=== PATIENT | female | born 1975 | race Caucasian/White ===

== ENCOUNTER 2018-03-11 20:41 | Emergency (ER) | payer OTHER ==
[2018-03-11 20:47] VITALS: BP 138/75; PULSE 78; TEMP 98; BMI 28.1
--- NOTE | 2018-03-11 20:47 | PDOC ---
Rapid Medical Evaluation Time Seen by Provider: 03/11/18 20:45 Medical Evaluation: Allergies Allergy/AdvReac Type Severity Reaction Status Date / Time vancomycin Allergy Itching Verified 02/27/18 07:47 03/11/18 20:45 I have performed a brief in-person evaluation of this patient. The patient presents with a chief complaint of: vaginal bleeding with known 4x4x4 hemorrhagic left ovarian cyst Pertinent physical exam findings: VSS. tender left abdomen I have ordered the following: labs, urine The patient will proceed to the ED for further evaluation. Discharge Disposition - Diagnosis Vaginal bleeding - Referrals - Patient Instructions - Post Discharge Activity
--- NOTE | 2018-03-11 21:03 | PDOC ---
History of Present Illness <Shahla Agarwal - Last Filed: 03/12/18 00:42> - General History Source: Patient Exam Limitations: No Limitations - History of Present Illness Initial Comments: 03/11/18 22:31 The patient is a 42-year-old female, with a past medical history of hydronephrosis with bilateral ureteral stent placement, who presents to the ED with left lower pelvic pain. The patient had a previous CT scan done at [facility] that revealed a 4x4 cm cyst on the left ovary. She followed up with her [facility]ODUCTION [facility]IST[facility] doctor who confirmed that the patient had a hemorrhagic cyst on her left ovary. She also noted vaginal bleeding today when she wiped. She denies taking anything for pain. The patient denies any dysuria. She denies any fever, chills, nausea, vomiting, or diarrhea. She denies any chest pain or shortness of breath. Allergies: vancomycin <Alyce Dean - Last Filed: 03/12/18 01:52> - General Chief Complaint: Vaginal Bleeding Stated Complaint: CYST Time Seen by Provider: 03/11/18 20:45 Past History - Past Medical History COPD: No Disorders: Yes (pilonephrosis and uro sepsis) - Surgical History Appendectomy: Yes - Immunization History Td Vaccination: Yes Immunization Up to Date: Yes - Suicide/Smoking/Psychosocial Hx Smoking Status: No Smoking History: Never smoked Have you smoked in the past 12 months: No Number of Cigarettes Smoked Daily: 0 Hx Alcohol Use: Yes (social) Drug/Substance Use Hx: No Substance Use Type: None <Shahla Agarwal - Last Filed: 03/12/18 00:42> <Alyce Dean - Last Filed: 03/12/18 01:52> - Past Medical History Allergies/Adverse Reactions: Allergies Allergy/AdvReac Type Severity Reaction Status Date / Time vancomycin Allergy Itching Verified 03/11/18 20:47 Home Medications: Ambulatory Orders Famotidine [Pepcid] 20 mg PO DAILY 02/27/18 metroNIDAZOLE [Flagyl -] 500 mg PO BID 02/27/18 Cephalexin Monohydrate [Keflex -] 500 mg PO BID #14 capsule 03/12/18 Review of Systems - Review of Systems Able to Perform ROS?: Yes Comments:: 03/11/18 22:47 GENERAL/CONSTITUTIONAL: No fever or chills. No weakness. HEAD, EYES, EARS, NOSE AND THROAT: No change in vision. No ear pain or discharge. No sore throat. CARDIOVASCULAR: No chest pain or shortness of breath. RESPIRATORY: No cough, wheezing, or hemoptysis. GASTROINTESTINAL: (+)Abdominal pain. No nausea, vomiting, diarrhea or constipation. GENITOURINARY: No dysuria, frequency, or change in urination. MUSCULOSKELETAL: No joint or muscle swelling or pain. No neck or back pain. SKIN: No rash NEUROLOGIC: No headache, vertigo, loss of consciousness, or change in strength/ sensation. ENDOCRINE: No increased thirst. No abnormal weight change. HEMATOLOGIC/LYMPHATIC: No anemia, easy bleeding, or history of blood clots. ALLERGIC/IMMUNOLOGIC: No hives or skin allergy. <Alyce Dean - Last Filed: 03/12/18 01:52> *Physical Exam - Vital Signs Last Vital Signs Temp Pulse Resp BP Pulse Ox 98.0 F 78 18 138/75 95 03/11/18 20:45 03/11/18 20:45 03/11/18 20:45 03/11/18 20:45 03/11/18 20:45 <Shahla Agarwal - Last Filed: 03/12/18 00:42> - Vital Signs Last Vital Signs Temp Pulse Resp BP Pulse Ox 98.0 F 78 18 138/75 95 03/11/18 20:45 03/11/18 20:45 03/11/18 20:45 03/11/18 20:45 03/11/18 20:45 - Physical Exam Comments: 03/11/18 23:19 GENERAL: Awake, alert, and fully oriented, in no acute distress HEAD: No signs of trauma EYES: PERRLA, EOMI, sclera anicteric, conjunctiva clear ENT: Auricles normal inspection, hearing grossly normal, nares patent, oropharynx clear without exudates. Moist mucosa NECK: Normal ROM, supple, no lymphadenopathy, JVD, or masses LUNGS: Breath sounds equal, clear to auscultation bilaterally. No wheezes, and no crackles HEART: Regular rate and rhythm, normal S1 and S2, no murmurs, rubs or gallops ABDOMEN: (+)Mild left pelvic tenderness to palpation. Soft, normoactive bowel sounds. No guarding, no rebound. No masses EXTREMITIES: Normal range of motion, no edema. No clubbing or cyanosis. No cords, erythema, or tenderness NEUROLOGICAL: Cranial nerves II through XII grossly intact. Normal speech, normal gait SKIN: Warm, Dry, normal turgor, no rashes or lesions noted PELVIC EXAM: Dark brown blood in vault. No clots noted. No CMT. No adnexal tenderness. <Alyce Dean - Last Filed: 03/12/18 01:52> ED Treatment Course - LABORATORY CBC & Chemistry Diagram: 03/11/18 22:40 03/11/18 22:40 <Shahla Agarwal - Last Filed: 03/12/18 00:42> - LABORATORY CBC & Chemistry Diagram: 03/11/18 22:40 03/11/18 22:40 <Alyce Dean - Last Filed: 03/12/18 01:52> Medical Decision Making - Medical Decision Making 03/12/18 00:03 a/p: 42yo female with L pelvic pain -recently dx with a hemorrhagic ovarian cyst -hx of irreg menstrual cycle -follows with [facility] -told that with the hemorrhagic ovarian cyst if she starts to bleed she should come to the ED -states spotting today -passage of a small clot -will obtain labs, pelvic exam, tvus -will give toradol for pain -will monitor and reassess 03/12/18 00:05 ultrasound shows a uterine fibroid and a 2.5x2.1 L ovarian cyst 03/12/18 00:42 discussed all labs and imaging sent Rx for UTI abx discussed all reasons to return to the ED and need for follow up answered all questions discussed follow up with [facility] <Shahla Agarwal - Last Filed: 03/12/18 00:42> *DC/Admit/Observation/Transfer - Discharge Dispostion Decision to Admit order: No - Attestations Physician Attestion: 03/12/18 00:15 I, Dr. Shahla Agarwal, DO, attest that this document has been prepared under my direction and personally reviewed by me in its entirety. I further attest, that it accurately reflects all work, treatment, procedures and medical decision -making performed by me. <Shahla Agarwal - Last Filed: 03/12/18 00:42> - Attestations Scribe Attestion: 03/11/18 23:20 Documentation prepared by Alyce Dean, acting as medical technologist for Shahla Agarwal DO. <Alyce Dean - Last Filed: 03/12/18 01:52> Diagnosis at time of Disposition: Vaginal bleeding, Hemorrhagic ovarian cyst, Uterine fibroid, UTI (urinary tract infection) - Discharge Dispostion Disposition: HOME Condition at time of disposition: Stable - Prescriptions Prescriptions: Cephalexin Monohydrate [Keflex -] 500 mg PO BID #14 capsule - Referrals Referrals: Kristel Hardin MD [Staff Physician] - - Patient Instructions Printed Discharge Instructions: DI for Uterine Fibroids, DI for Urinary Tract Infection (UTI), DI for Ovarian Cyst Additional Instructions: Please take all medications as prescribed. Please return to the Ed with any further concerns or complaints. Please make an appointment to see your VIDEO PRODUCTION ASSISTANT. Please drink plenty of fluids. Please return to the ED [place] if you start to bleed more than 2 pads an hour for more than 2 hours.
[2018-03-11] MEDS ORDERED: KETOROLAC TROMETHAMINE 30 MG/1 ML VIAL IVPUSH ONE (21:16)
[2018-03-11 23:09] LABS: BASO % 0.6 % (0-2.0); EOS % 1.7 % (0-4.5); HEMATOCRIT 36.3 % (32.4-45.2); HEMOGLOBIN 12.4 GM/dL (10.7-15.3); LYMPH % 28.3 % (8-40); MCH 31.1 pg (25.7-33.7); MCHC 34.1 g/dl (32.0-36.0); MEAN CELL VOLUME 91.3 fl (80-96); MEAN PLT VOLUME 9.8 fl (7.5-11.1); MONO % 9.5 % (3.8-10.2); NEUT % 59.9 % (42.8-82.8); PLATELET COUNT 254 K/MM3 (134-434); RBC 3.98 M/mm3 (3.60-5.2); RDW 13.3 % (11.6-15.6); WHITE BLOOD COUNT 5.9 K/mm3 (4.0-10.0)
[2018-03-11 23:28] LABS: URINE APPEARANCE SLCLOUDY; URINE BILIRUBIN NEGATIVE (<2.0 mg/dL); URINE COLOR LTYELLOW; URINE GLUCOSE (UA) NEGATIVE (NEGATIVE); URINE KETONE NEGATIVE (NEGATIVE); URINE LEUK ESTERASE TRACE (NEGATIVE); URINE NITRITE NEGATIVE (NEGATIVE); URINE PROTEIN NEGATIVE (NEGATIVE); URINE UROBILINOGEN NEGATIVE mg/dL (0.2-1.0)
[2018-03-11 23:30] LABS: EPI CELLS RARE /HPF (FEW); URINE BACTERIA MODERATE /hpf (NONE SEEN); URINE MUCUS RARE
[2018-03-11 23:33] LABS: ALBUMIN 3.6 g/dl (3.4-5.0); ALK PHOS 83 U/L (45-117); ANION GAP 5 (8-16); BILIRUBIN,TOTAL 0.1 mg/dL (0.2-1.0); BLOOD UREA NITROGEN 12 mg/dL (7-18); CALCIUM 8.3 mg/dL (8.5-10.1); CHLORIDE 108 mmol/L (98-107); CO2 28 mmol/L (21-32); CREATININE 0.8 mg/dL (0.55-1.02); GLUCOSE,RANDOM 96 mg/dL (74-106); POTASSIUM 4.2 mmol/L (3.5-5.1); SGOT/AST 13 U/L (15-37); SGPT/ALT 20 U/L (12-78); SODIUM 141 mmol/L (136-145); TOT PROT 6.8 g/dl (6.4-8.2)
[2018-03-11 23:37] LABS: HCG,QUALITATIVE URINE NEGATIVE
[2018-03-11] MEDS ORDERED: CEFTRIAXONE 1 GM in DEXTROSE 5%-WATER - 100 ML IVPB ONE (23:45)
[2018-03-12] MEDS ORDERED: CEPHALEXIN MONOHYDRATE 500 MG CAPSULE (UD) PO ONE (00:18)
[2018-03-12] MEDS ORDERED: IBUPROFEN 600 MG TABLET (FP) PO ONE ×2 (00:18→00:22)
[2018-03-12] MEDS ORDERED: CEPHALEXIN MONOHYDRATE 500 MG CAPSULE (UD) ONE (00:22)
== END 2018-03-12 01:10 | disposition home or self-care (01) ==
LOC: JER 20:41
DX: N93.9 Abnormal uterine and vaginal bleeding, unspecified (principal); N39.0 Urinary tract infection, site not specified; D25.9 Leiomyoma of uterus, unspecified; N83.209 Unspecified ovarian cyst, unspecified side
CPT/HCPCS: 36415; 76830-TC; 80053; 81003; 81015; 84703; 85025; 86850; 86900; 86901; 87086; 99282-25

== ENCOUNTER 2018-07-07 14:05 | Emergency (ER) | payer OTHER ==
--- NOTE | 2018-07-07 14:32 | PDOC ---
Rapid Medical Evaluation Chief Complaint: Pain Time Seen by Provider: 07/07/18 14:28 Medical Evaluation: Allergies Allergy/AdvReac Type Severity Reaction Status Date / Time vancomycin Allergy Itching Verified 03/11/18 20:47 07/07/18 14:28 I have performed a brief in- person evaluation of the patient. The patient presents with CC: Abdominal pain HPI: Pt is a 42 YO female who states that 10 days ago she has had left sided abd pain with decreased BM. She has had an appendectomy, denies fever, denies vomiting. LMP was 06/01. She states her PCP gave her Levaquin on Friday, and had labs but she is dubious as to why he initiated the abx. PE: Skin: Clear Lungs: Clear Heart: RRR Abd: Soft, non-tender MS: Moves all extremities without difficulty. Neuro: Alert Psych: Appropriate affect I have ordered the following: abd protocol The patient will proceed to the ED for further evaluation. Discharge Disposition - Diagnosis Abdominal pain Qualifiers: Abdominal location: lower abdomen, unspecified Qualified Code(s): R10.30 - Lower abdominal pain, unspecified - Referrals Referrals: Nasir Henson MD [Primary Care Provider] - - Patient Instructions - Post Discharge Activity
[2018-07-07 14:33] VITALS: BP 123/64; PULSE 103; TEMP 98; BMI 27.3
[2018-07-07 15:21] LABS: BASO % 0.5 % (0-2.0); EOS % 1.3 % (0-4.5); HEMATOCRIT 37.6 % (32.4-45.2); HEMOGLOBIN 13.4 GM/dL (10.7-15.3); LYMPH % 24.2 % (8-40); MCH 32.1 pg (25.7-33.7); MCHC 35.5 g/dl (32.0-36.0); MEAN CELL VOLUME 90.5 fl (80-96); MONO % 8.9 % (3.8-10.2); NEUT % 65.1 % (42.8-82.8); PLATELET COUNT 233 K/MM3 (134-434); RBC 4.16 M/mm3 (3.60-5.2); RDW 12.6 % (11.6-15.6)
[2018-07-07] MEDS ORDERED: ACETAMINOPHEN 1000 MG/100 ML VIAL (NON FORMULARY) IVPB ONE (15:41)
--- NOTE | 2018-07-07 15:41 | PDOC ---
History of Present Illness - General History Source: Patient Exam Limitations: No Limitations - History of Present Illness Initial Comments: 07/07/18 16:15 Ms Bowling is a 42 year old female with a history of ureteral stricture/ hydronephrosis c/b urosepsis due to pyelonephritis and psoriasis, here today for evaluation of lower left quadrant abdominal pain. The patient reports that her pain started on 06/26/18 and notes associated cramping, nausea, and diarrhea. She describes the pain as a pressure-like sensation, as a 6/10 in severity, and localized to the left lower quadrant, nonradiating. The patient also reports extreme bloating after minimal eating and constipation which started 6 days ago. The patient went to her primary care physician Dr. Henson and was prescribed levaquin 5 days ago. Normal menstrual cycle, lmp 05/2018 No travel history or sick contacts. No food precipitants. She denies headache. Denies chest pain shortness of breath. Denies blood in bowel movements. Denies fever, chills. Denies vomiting. Allergies: vancomycin Social history: occasional alcohol use PCP: Nasir Henson <Alyce Dean - Last Filed: 07/07/18 16:15> - General History Source: Patient Exam Limitations: No Limitations <Vee Cullen - Last Filed: 07/07/18 17:26> - General Chief Complaint: Pain Stated Complaint: ABD PAIN Time Seen by Provider: 07/07/18 14:28 Past History <Alyce Dean - Last Filed: 07/07/18 16:15> - Past Medical History COPD: No Disorders: Yes (pilonephrosis and uro sepsis) - Surgical History Appendectomy: Yes - Immunization History Td Vaccination: Yes Immunization Up to Date: Yes - Suicide/Smoking/Psychosocial Hx Smoking Status: No Smoking History: Never smoked Have you smoked in the past 12 months: No Number of Cigarettes Smoked Daily: 0 Hx Alcohol Use: No Drug/Substance Use Hx: No Substance Use Type: None <Vee Cullen - Last Filed: 07/07/18 17:26> - Past Medical History Allergies/Adverse Reactions: Allergies Allergy/AdvReac Type Severity Reaction Status Date / Time vancomycin Allergy Itching Verified 03/11/18 20:47 Home Medications: Ambulatory Orders Levofloxacin [Levaquin] 0 mg PO DAILY 07/07/18 Review of Systems - Review of Systems Able to Perform ROS?: Yes Comments:: 07/07/18 16:15 GENERAL/CONSTITUTIONAL: No fever or chills. No weakness. no sweats. HEAD, EYES, EARS, NOSE AND THROAT: No change in vision or hearing. No ear pain or discharge. No sore throat or mouth pain. No difficulty swallowing. No congestion. CARDIOVASCULAR: No chest pain or palpitations, syncope or edema. RESPIRATORY: No SOB, cough, wheezing, or hemoptysis. GASTROINTESTINAL +Nausea. +constipation. +Abdominal pain. No vomiting. No diarrhea. No bloody stools. GENITOURINARY: No hematuria, dysuria, frequency, urgency or other changes. No VB MUSCULOSKELETAL: No joint or muscle swelling or pain. No neck or back pain. SKIN: No rash or changes in skin color or lesions. NEUROLOGIC: No headache, vertigo, loss of consciousness, or change in strength/ sensation. No gait instability. HEMATOLOGIC/LYMPHATIC: No anemia, easy bruising/bleeding, or history of blood clots. ALLERGIC/IMMUNOLOGIC: No allergies All other systems reviewed and negative, or as documented in HPI. <Alyce Dean - Last Filed: 07/07/18 16:15> *Physical Exam - Vital Signs Last Vital Signs Temp Pulse Resp BP Pulse Ox 98 F 103 H 18 123/64 99 07/07/18 14:30 07/07/18 14:30 07/07/18 14:30 07/07/18 14:30 07/07/18 14:30 - Physical Exam Comments: 07/07/18 16:16 General: Well appearing, awake and alert, NAD. HEENT: NCAT, PERRL, EOMI, clear conjunctiva, anicteric, moist mucus membranes, clear oropharynx, no oral lesions.. Neck: neck supple, FROM Resp: CTAB, normal and even respirations, no respiratory distress CVS: RRR, no murmurs, 2+ peripheral pulses throughout, no peripheral edema Abdomen: soft, obese, no peritoneal signs. Lower left quadrant tenderness to palpation with no rebound or guarding Back: nontender, normal inspection and ROM, no CVA tenderness MSK: no edema, JERRY x4, ROM intact. No clubbing or cyanosis. normal bulk and tone. Extremities: no calf tenderness Neuro: alert, no focal neuro deficits. Skin: warm and well perfused, cap refill <2 sec, normal color <Alyce Dean - Last Filed: 07/07/18 16:15> - Vital Signs Last Vital Signs Temp Pulse Resp BP Pulse Ox 98 F 103 H 18 123/64 99 07/07/18 14:30 07/07/18 14:30 07/07/18 14:30 07/07/18 14:30 07/07/18 14:30 <Vee Cullen - Last Filed: 07/07/18 17:26> ED Treatment Course - LABORATORY CBC & Chemistry Diagram: 07/07/18 14:53 07/07/18 14:53 - ADDITIONAL ORDERS Additional order review: Laboratory Results 07/07/18 14:53 Sodium 141 Potassium 3.9 Chloride 102 Carbon Dioxide 28 Anion Gap 11 BUN 11 Creatinine 1.0 Creat Clearance w eGFR > 60 Random Glucose 63 L Calcium 8.9 Total Bilirubin 0.4 AST 15 ALT 24 Alkaline Phosphatase 116 Total Protein 7.8 Albumin 3.9 Lipase 201 07/07/18 14:53 RBC 4.16 MCV 90.5 MCHC 35.5 RDW 12.6 MPV 10.0 Neutrophils % 65.1 Lymphocytes % 24.2 Monocytes % 8.9 Eosinophils % 1.3 Basophils % 0.5 <Alyce Dean - Last Filed: 07/07/18 16:15> - LABORATORY CBC & Chemistry Diagram: 07/07/18 14:53 07/07/18 14:53 - ADDITIONAL ORDERS Additional order review: 07/07/18 14:53 RBC 4.16 MCV 90.5 MCHC 35.5 RDW 12.6 MPV 10.0 Neutrophils % 65.1 Lymphocytes % 24.2 Monocytes % 8.9 Eosinophils % 1.3 Basophils % 0.5 <Vee Cullen - Last Filed: 07/07/18 17:26> Medical Decision Making - Medical Decision Making 07/07/18 15:45 I, Vee Cullen MD, attest that this document has been prepared under my direction and personally reviewed by me in its entirety. I further attest, that it accurately reflects all work, treatment, procedures and medical decision -making performed by me. Ms Bowling is a 42 YO female p/w left sided abd pain with decreased BM x 10 days ago. Initially started with diarrhea, now constipated. She has had an appendectomy, denies fever, denies vomiting. LMP was 06/01. She states her PCP gave her Levaquin on Friday, and had labs but she is dubious as to why he initiated the abx. DDx abdominal pain: Renal colic, biliary colic, metabolic/electrolyte derangements. GERD, PUD, esophageal spasm, pancreatitis, hepatitis, constipation , colitis, gastroenteritis, cholecystitis, UTI, pyelonephritis, ileus, SBO, medication side effect, hernia, diverticulitis; no large diarrhea episodes to suggest C diff/colitis. Vital signs reviewed, wnl. mild tachy likely from pain, no fever Prior notes reviewed, including admissions, discharges and consultations. laboratory results and imaging reviewed, basic labs and lytes wnl, notable for normal lipase and LFTs. UA_pending. ED course: analgesia, IVF and CT a/p to r/o diverticulitis. s/p appy, unlikely pelvic pathology as no pelvic pain or abnormal periods. Dispo: s/o pending CT a/p and dispo, reeval 07/07/18 17:25 <Vee Cullen - Last Filed: 07/07/18 17:26> *DC/Admit/Observation/Transfer - Attestations Scribe Attestion: 07/07/18 16:16 Documentation prepared by Alyce Dean, acting as paramedical aide for Vee Cullen MD, MD. <Alyce Dean - Last Filed: 07/07/18 16:15> <Vee Cullen - Last Filed: 07/07/18 17:26> Diagnosis at time of Disposition: Abdominal pain Qualifiers: Abdominal location: lower abdomen, unspecified Qualified Code(s): R10.30 - Lower abdominal pain, unspecified - Discharge Dispostion Condition at time of disposition: Good - Referrals Referrals: Nasir Henson MD [Primary Care Provider] - - Patient Instructions - Post Discharge Activity
[2018-07-07] MEDS ORDERED: SODIUM CHLORIDE 0.9% 500 ML INFUS.BAG IV ONE (15:42)
[2018-07-07 15:58] LABS: ALBUMIN 3.9 g/dl (3.4-5.0); ALK PHOS 116 U/L (45-117); ANION GAP 11 MMOL/L (8-16); BILIRUBIN,TOTAL 0.4 mg/dL (0.2-1); BLOOD UREA NITROGEN 11 mg/dL (7-18); CALCIUM 8.9 mg/dL (8.5-10.1); CHLORIDE 102 mmol/L (98-107); CO2 28 mmol/L (21-32); GLUCOSE,RANDOM 63 mg/dL (74-106); LIPASE 201 U/L (73-393); POTASSIUM 3.9 mmol/L (3.5-5.1); SGOT/AST 15 U/L (15-37); SGPT/ALT 24 U/L (13-61); SODIUM 141 mmol/L (136-145); TOT PROT 7.8 g/dl (6.4-8.2)
[2018-07-07] MEDS ORDERED: ACETAMINOPHEN INJECTION 100 ML IVPB ONE (16:45)
[2018-07-07 18:06] LABS: URINE APPEARANCE SLCLOUDY; URINE BILIRUBIN NEGATIVE (<2.0 mg/dL); URINE COLOR STRAW; URINE GLUCOSE (UA) NEGATIVE (NEGATIVE); URINE KETONE NEGATIVE (NEGATIVE); URINE LEUK ESTERASE NEGATIVE (NEGATIVE); URINE NITRITE NEGATIVE (NEGATIVE); URINE PROTEIN NEGATIVE (NEGATIVE); URINE UROBILINOGEN NEGATIVE mg/dL (0.2-1.0)
--- NOTE | 2018-07-07 20:49 | PDOC ---
*Physical Exam - Vital Signs Last Vital Signs Temp Pulse Resp BP Pulse Ox 98 F 103 H 18 123/64 99 07/07/18 14:30 07/07/18 14:30 07/07/18 14:30 07/07/18 14:30 07/07/18 14:30 ED Treatment Course - LABORATORY CBC & Chemistry Diagram: 07/07/18 14:53 07/07/18 14:53 - ADDITIONAL ORDERS Additional order review: Laboratory Results 07/07/18 07/07/18 07/07/18 17:15 17:15 17:05 Sodium Potassium Chloride Carbon Dioxide Anion Gap BUN Creatinine Creat Clearance w eGFR Random Glucose Calcium Total Bilirubin AST ALT Alkaline Phosphatase Total Protein Albumin Lipase Serum , Qual Negative Urine Color Straw Urine Appearance Slcloudy Urine pH 6.0 Ur Specific [place] 1.006 L Urine Protein Negative Urine Glucose (UA) Negative Urine Ketones Negative Urine Blood Negative Urine Nitrite Negative Urine Bilirubin Negative Urine Urobilinogen Negative Ur Leukocyte Esterase Negative Urine HCG, Qual Negative 07/07/18 14:53 Sodium 141 Potassium 3.9 Chloride 102 Carbon Dioxide 28 Anion Gap 11 BUN 11 Creatinine 1.0 Creat Clearance w eGFR > 60 Random Glucose 63 L Calcium 8.9 Total Bilirubin 0.4 AST 15 ALT 24 Alkaline Phosphatase 116 Total Protein 7.8 Albumin 3.9 Lipase 201 Serum , Qual Urine Color Urine Appearance Urine pH Ur Specific [place] Urine Protein Urine Glucose (UA) Urine Ketones Urine Blood Urine Nitrite Urine Bilirubin Urine Urobilinogen Ur Leukocyte Esterase Urine HCG, Qual 07/07/18 14:53 RBC 4.16 MCV 90.5 MCHC 35.5 RDW 12.6 MPV 10.0 Neutrophils % 65.1 Lymphocytes % 24.2 Monocytes % 8.9 Eosinophils % 1.3 Basophils % 0.5 - Medications Given in the ED: ED Medications Discontinued Medications Generic Name Dose Route Start Last Admin Trade Name Freq PRN Reason Stop Dose Admin Acetaminophen 1,000 mg 07/07/18 15:41 07/07/18 16:51 Ofirmev Injection - IVPB 07/07/18 15:42 1,000 mg ONCE ONE Administration Sodium Chloride 1,000 ml 07/07/18 15:42 07/07/18 16:51 Normal Saline - IV 07/07/18 15:43 1,000 ml ONCE ONE Administration Medical Decision Making - Medical Decision Making 11/20/18 20:48 ct scan of abd/pel : negative for diverticulitis,appendicitis,no lymphadenapathy ,no masses or fluid collections 07/07/18 21:03 imp Nausea, Diarrhea plan advance diet as tolerated and follow up with GI if symptoms persist *DC/Admit/Observation/Transfer Diagnosis at time of Disposition: Abdominal pain Qualifiers: Abdominal location: lower abdomen, unspecified Qualified Code(s): R10.30 - Lower abdominal pain, unspecified - Discharge Dispostion Disposition: HOME Condition at time of disposition: Good Decision to Admit order: No - Referrals Referrals: Nasir Henson MD [Primary Care Provider] - - Patient Instructions Printed Discharge Instructions: DI for Abdominal Pain-Adult Additional Instructions: please follow up with Dr Henson - Post Discharge Activity
== END 2018-07-07 21:18 | disposition home or self-care (01) ==
LOC: JER 14:05
PROC: 3E033NZ Introduction of Analgesics, Hypnotics, Sedatives into Peripheral Vein, Percutaneous Approach (ICD-10-PCS; principal; 2018-07-07)
DX: R10.30 Lower abdominal pain, unspecified (principal); Z87.448 Personal history of other diseases of urinary system
CPT/HCPCS: 36415; 74177-TC; 80053; 81003; 83690; 84703; 85025; 99283-25; J0131

== ENCOUNTER → 2020-07-05 | Day surgery (SDC) | payer OTHER | END | disposition home or self-care (01) | LOC: FMAMMOTONE 09:41 → MERGE 10:30 | PROVIDERS: ATTEND Specialist | PROC: 0HBU3ZX Excision of Left Breast, Percutaneous Approach, Diagnostic (ICD-10-PCS; principal; 2020-07-05) | DX: C50.812 Malignant neoplasm of overlapping sites of left female breast (principal); Z17.0 Estrogen receptor positive status [ER+]; R92.1 Mammographic calcification found on diagnostic imaging of breast; N64.89 Other specified disorders of breast; N64.1 Fat necrosis of breast | CPT/HCPCS: 19081; 76098-TC-FY; 88305-TC; 88342-TC ==

== ENCOUNTER 2020-07-16 07:52 | Emergency (ER) | payer OTHER ==
[2020-07-16 08:10] VITALS: BP 127/66; PULSE 76; TEMP 99.2; BMI 30.4
[2020-07-16 08:55] LABS: BASO % 0.7 % (0-2.0); EOS % 3.2 % (0-4.5); HEMATOCRIT 36.1 % (32.4-45.2); LYMPH % 24.4 % (8-40); MCH 30.8 pg (25.7-33.7); MCHC 33.3 g/dl (32.0-36.0); MEAN CELL VOLUME 92.6 fl (80-96); MEAN PLT VOLUME 9.2 fl (7.5-11.1); MONO % 8.7 % (3.8-10.2); PLATELET COUNT 232 K/MM3 (134-434); RDW 12.7 % (11.6-15.6); WHITE BLOOD COUNT 4.6 K/mm3 (4.0-10.8)
[2020-07-16 09:06] LABS: CREATININE 0.6 mg/dl (0.55-1.3); POTASSIUM 4.3 mmol/L (3.5-5.1)
== END 2020-07-16 09:44 | disposition home or self-care (01) ==
LOC: FER 07:52
DX: M94.0 Chondrocostal junction syndrome [Tietze] (principal)
CPT/HCPCS: 36415; 71046-TC-FY; 80048; 84484; 85025; 93005; 99284-25

== ENCOUNTER → 2020-07-19 | Day surgery (SDC) | payer OTHER | END | disposition home or self-care (01) | LOC: JRADUS-SUR 07:58 → MERGE 09:00 | PROVIDERS: ATTEND Specialist | PROC: BH42ZZZ Ultrasonography of Bilateral Breasts (ICD-10-PCS; principal; 2020-07-19) | DX: N60.01 Solitary cyst of right breast (principal); C50.912 Malignant neoplasm of unspecified site of left female breast; Z53.8 Procedure and treatment not carried out for other reasons | CPT/HCPCS: 76642-TC-50 ==

== ENCOUNTER → 2020-07-25 | Day surgery (SDC) | payer OTHER | END | disposition home or self-care (01) | LOC: FRADUS-SUR 12:47 | PROVIDERS: ATTEND Surgery | PROC: 0H9U3ZX Drainage of Left Breast, Percutaneous Approach, Diagnostic (ICD-10-PCS; principal; 2020-07-25) | DX: D24.2 Benign neoplasm of left breast (principal) | CPT/HCPCS: 19085; 77065-TC; 88305-TC; A9579; C1887 ==

== ENCOUNTER 2020-07-28 13:37 | Emergency (ER) | payer OTHER ==
[2020-07-28] MEDS ORDERED: ACETAMINOPHEN 500 MG TABLET (FP) PO ONE (14:02)
[2020-07-28] MEDS ORDERED: FAMOTIDINE 20 MG TABLET PO ONE (14:02)
[2020-07-28] MEDS ORDERED: MAG HYDROX/AL HYDROX/SIMETH 30 ML UNIT-DOSE CUP PO ONE (14:02)
[2020-07-28] MEDS ORDERED: FAMOTIDINE 20 MG TABLET ONE (14:18)
[2020-07-28] MEDS ORDERED: ACETAMINOPHEN 500 MG TABLET (FP) ONE (14:19)
[2020-07-28] MEDS ORDERED: MAG HYDROX/AL HYDROX/SIMETH 30 ML UNIT-DOSE CUP ONE (14:19)
[2020-07-28 14:33] VITALS: BP 127/77; PULSE 79; TEMP 98.9; BMI 29.9
== END 2020-07-28 15:25 | disposition home or self-care (01) ==
LOC: FER 13:37
DX: K21.9 Gastro-esophageal reflux disease without esophagitis (principal)
CPT/HCPCS: 71046-TC-FY; 99283-25

== ENCOUNTER 2020-08-15 04:22 | Day surgery (SDC) | payer OTHER ==
[2020-08-14 15:01] VITALS: BMI 30.4
[2020-08-15] MEDS ORDERED: ISOSULFAN BLUE 50 MG/5 ML VIAL SQ ONE (11:45)
[2020-08-15] MEDS ORDERED: LIDOCAINE HCL/PF 2% SDV 5ML VIAL ONE (12:40)
[2020-08-15] MEDS ORDERED: ceFAZolin SODIUM 1 GM VIAL ONE (12:40)
[2020-08-15] MEDS ORDERED: PROPOFOL 20 ML ONE ×2 (12:41)
[2020-08-15] MEDS ORDERED: MIDAZOLAM HCL 2 MG/2 ML SINGLE DOSE VIAL ONE (12:41)
[2020-08-15] MEDS ORDERED: ceFAZolin SODIUM 1 GM VIAL IVPB ONE (12:53)
[2020-08-15] MEDS ORDERED: LACTATED RINGERS SOLUTION 1,000 ML IV SCH (14:45)
[2020-08-15] MEDS ORDERED: ONDANSETRON 4 MG/2 ML VIAL IVPUSH PRN (14:53)
[2020-08-15] MEDS ORDERED: PROMETHAZINE HCL 25 MG/1 ML VIAL IVPUSH PRN (14:54)
[2020-08-15 16:06] VITALS: TEMP 96.8
[2020-08-15 17:01] VITALS: PULSE 66
[2020-08-15 18:15] VITALS: BP 134/77
== END 2020-08-15 18:25 | disposition home or self-care (01) ==
LOC: JASU-SURG 04:22
PROVIDERS: ATTEND Surgery
PROC: 0HBU0ZZ Excision of Left Breast, Open Approach (ICD-10-PCS; principal; 2020-08-15 11:00)
DX: C50.912 Malignant neoplasm of unspecified site of left female breast (principal)
CPT/HCPCS: 19281; 76098-TC-FY; 78195-TC; 94760; A9541

== ENCOUNTER 2020-09-26 04:34 | Day surgery (SDC) | payer OTHER ==
[2020-09-22 19:01] VITALS: BMI 30.4
[2020-09-26] MEDS ORDERED: LIDOCAINE HCL 1%, 10 MG/ML (20ML VIAL) ONE (11:18)
[2020-09-26] MEDS ORDERED: HEPARIN NA (PORCINE) 5,000 UNITS/ML 1ML VIAL ONE (11:18)
[2020-09-26] MEDS ORDERED: LIDOCAINE HCL 1% PRESERVATIVE FREE - 30ML VIAL IJ ONE ×2 (11:31)
[2020-09-26] MEDS ORDERED: PROPOFOL 20 ML ONE ×2 (12:13→12:31)
[2020-09-26] MEDS ORDERED: MIDAZOLAM HCL 2 MG/2 ML SINGLE DOSE VIAL ONE (12:14)
[2020-09-26] MEDS ORDERED: ceFAZolin 2 GRAM PREMIX BAG IVPB ONE (12:16)
[2020-09-26] MEDS ORDERED: HEPARIN NA (PORCINE) 5,000 UNITS/ML 1ML VIAL SQ ONE (12:37)
[2020-09-26] MEDS ORDERED: DEXAMETHASONE SOD PHOSPHATE 4 MG/1 ML VIAL ONE (12:46)
[2020-09-26] MEDS ORDERED: KETOROLAC TROMETHAMINE 30 MG/1 ML VIAL ONE (12:46)
[2020-09-26] MEDS ORDERED: ONDANSETRON 4 MG/2 ML VIAL ONE ×2 (12:46→12:54)
[2020-09-26] MEDS ORDERED: ceFAZolin SODIUM 1 GM VIAL ONE (12:46)
[2020-09-26] MEDS ORDERED: ONDANSETRON 4 MG/2 ML VIAL IVPUSH PRN (13:23)
[2020-09-26] MEDS ORDERED: LACTATED RINGERS SOLUTION 1,000 ML IV SCH (13:30)
[2020-09-26 15:47] VITALS: TEMP 97.8
[2020-09-26 15:51] VITALS: BP 110/58; PULSE 78
== END 2020-09-26 18:15 | disposition home or self-care (01) ==
LOC: JASU-SURG 04:34
PROVIDERS: ATTEND Surgery
PROC: B518ZZA Fluoroscopy of Superior Vena Cava, Guidance (ICD-10-PCS; 2020-09-26)
PROC: 02HV33Z Insertion of Infusion Device into Superior Vena Cava, Percutaneous Approach (ICD-10-PCS; principal; 2020-09-26 13:00)
DX: C50.912 Malignant neoplasm of unspecified site of left female breast (principal)
CPT/HCPCS: 36561; C1788; 71045-TC-FY; 76000-TC-FY; 94760; J1644

== ENCOUNTER 2020-10-09 07:53 | Day surgery (SDC) | payer OTHER ==
[2020-10-09] MEDS ORDERED: SODIUM CHLORIDE 250 ML IV ONE (09:00)
[2020-10-09] MEDS ORDERED: DEXAMETHASONE SODIUM PHOSPHATE 10 MG in SODIUM CHLORIDE 50 ML IVPB ONE (09:30)
[2020-10-09] MEDS ORDERED: FOSAPREPITANT DIMEGLUMINE 150 MG in SODIUM CHLORIDE 145 ML IVPB ONE (09:30)
[2020-10-09] MEDS ORDERED: PALONOSETRON HCL 0.25 MG/5 ML VIAL IVPUSH ONE (09:30)
[2020-10-09] MEDS ORDERED: DOCETAXEL IV ONE ×2 (10:00→10:30)
[2020-10-09] MEDS ORDERED: SODIUM CHLORIDE IV ONE ×2 (10:00→10:30)
[2020-10-09] MEDS ORDERED: SODIUM CHLORIDE IVPB ONE (11:00)
[2020-10-09] MEDS ORDERED: CYCLOPHOSPHAMIDE IVPB ONE (11:00)
[2020-10-09] MEDS ORDERED: CYCLOPHOSPHAMIDE INJECTION 1,240 MG in SODIUM CHLORIDE 250 ML IVPB ONE (11:30)
[2020-10-09 12:00] LABS: BASO % 0.9 % (0-2.0); EOS % 2.2 % (0-4.5); HEMATOCRIT 37.6 % (32.4-45.2); HEMOGLOBIN 12.7 GM/dL (10.7-15.3); LYMPH % 22.7 % (8-40); MCH 30.7 pg (25.7-33.7); MCHC 33.8 g/dl (32.0-36.0); MEAN CELL VOLUME 90.8 fl (80-96); MEAN PLT VOLUME 10.3 fl (7.5-11.1); MONO % 7.4 % (3.8-10.2); NEUT % 66.8 % (42.8-82.8); PLATELET COUNT 261 K/MM3 (134-434); RBC 4.14 M/mm3 (3.60-5.2); RDW 12.9 % (11.6-15.6)
[2020-10-09 12:12] LABS: POTASSIUM 4.3 mmol/L (3.5-5.1)
[2020-10-09 12:14] LABS: CALCIUM 9.8 mg/dL (8.5-10.1)
[2020-10-09 12:15] LABS: ALBUMIN 4.1 g/dl (3.4-5.0); MAGNESIUM 2.2 mg/dL (1.8-2.4)
[2020-10-09 12:18] LABS: BILIRUBIN,DIRECT 0.1 mg/dL (0.0-0.2); CREATININE 0.7 mg/dL (0.55-1.3)
[2020-10-09 12:20] LABS: BILIRUBIN,TOTAL 0.4 mg/dL (0.2-1); TOT PROT 7.8 g/dl (6.4-8.2)
[2020-10-09] MEDS ORDERED: DEXAMETHASONE SOD PHOSPHATE 10 MG/1 ML VIAL IVPB ONE (16:01)
[2020-10-09 17:41] VITALS: TEMP 98.9
[2020-10-09 18:10] VITALS: BP 119/60; PULSE 80
[2020-10-09] MEDS ORDERED: PORTA CATH FLUSH 10 ML IVPUSH ONE (18:10)
== END 2020-10-09 17:30 | disposition home or self-care (01) ==
LOC: JONCCHEMO 07:53
PROVIDERS: ATTEND Internal Medicine Hematology & Oncology
DX: Z51.11 Encounter for antineoplastic chemotherapy (principal); C50.812 Malignant neoplasm of overlapping sites of left female breast; Z17.0 Estrogen receptor positive status [ER+]
CPT/HCPCS: 36415; 80048; 80076; 83735; 85025; 86704; 86803; 87340; 96361; 96367; 96375; 96413; 96417; J1100; J1453; J2469; J9070; J9171

== ENCOUNTER 2020-10-10 07:38 | Day surgery (SDC) | payer OTHER ==
[2020-10-10] MEDS ORDERED: PANTOPRAZOLE SODIUM 40 MG VIAL IVPUSH ONE (10:15)
[2020-10-10] MEDS ORDERED: D5-1/2NS+20 MEQ KCL - 30 MEQ/1,500 ML INFUS.BAG IV ONE (10:30)
[2020-10-10] MEDS ORDERED: ONDANSETRON INJECTION 8 MG in SODIUM CHLORIDE 50 ML IVPB ONE (10:30)
[2020-10-10] MEDS ORDERED: MAGNESIUM 1GM/D5W - 1 GM/100 ML IVPB IVPB ONE (10:30)
[2020-10-10] MEDS: PEGFILGRASTIM-CBQV (UDENYCA) 6 MG/0.6 ML SYRINGE SQ ONE ×2 (10:52→13:00)
[2020-10-10 15:55] VITALS: TEMP 97.7
[2020-10-10 15:56] VITALS: BP 116/55; PULSE 82
== END 2020-10-10 13:30 | disposition home or self-care (01) ==
LOC: JONCCHEMO 07:38
PROVIDERS: ATTEND Internal Medicine Hematology & Oncology
PROC: 3E043GC Introduction of Other Therapeutic Substance into Central Vein, Percutaneous Approach (ICD-10-PCS; principal; 2020-10-10)
PROC: 3E043GC Introduction of Other Therapeutic Substance into Central Vein, Percutaneous Approach (ICD-10-PCS; 2020-10-10)
PROC: 3E013GC Introduction of Other Therapeutic Substance into Subcutaneous Tissue, Percutaneous Approach (ICD-10-PCS; 2020-10-10)
DX: C50.812 Malignant neoplasm of overlapping sites of left female breast (principal); Z17.0 Estrogen receptor positive status [ER+]; Z76.89 Persons encountering health services in other specified circumstances
CPT/HCPCS: 96361; 96365; 96372; 96375; J2405; Q5111

== ENCOUNTER 2020-10-13 16:30 | Day surgery (SDC) | payer OTHER ==
[~2020-10-13 16:30] MED LIST: SODIUM CHLORIDE 1,000 ML IV SCH
[2020-10-13 16:44] VITALS: TEMP 98
[2020-10-13 16:45] VITALS: BP 124/56; PULSE 94
== END 2020-10-13 19:00 | disposition home or self-care (01) ==
LOC: JONCCHEMO 16:30 → J7W 16:30 → JONCCHEMO 19:00
PROVIDERS: ATTEND Internal Medicine Hematology & Oncology
PROC: 3E0437Z Introduction of Electrolytic and Water Balance Substance into Central Vein, Percutaneous Approach (ICD-10-PCS; principal; 2020-10-13)
DX: C50.812 Malignant neoplasm of overlapping sites of left female breast (principal); Z17.0 Estrogen receptor positive status [ER+]; Z76.89 Persons encountering health services in other specified circumstances
CPT/HCPCS: 96360; 96361

== ENCOUNTER 2020-10-15 02:04 | Emergency (ER) | payer OTHER ==
[2020-10-15 02:26] VITALS: TEMP 99; BMI 31.6
[2020-10-15 04:53] LABS: EPI CELLS 16 /uL (0-25.1); HYALINE CASTS 3 /uL (0-3.1); PH,URINE 5.5 (5.0-8.0); URINE APPEARANCE CLOUDY; URINE BACTERIA 1571 /uL (0-1359); URINE BILIRUBIN NEGATIVE (NEGATIVE); URINE COLOR YELLOW; URINE GLUCOSE (UA) NEGATIVE (NEGATIVE); URINE KETONE NEGATIVE (NEGATIVE); URINE LEUK ESTERASE NEGATIVE (NEGATIVE); URINE NITRITE NEGATIVE (NEGATIVE); URINE PROTEIN NEGATIVE (NEGATIVE); URINE UROBILINOGEN 0.2 mg/dL (0.2-1.0); URINE WBC 12 /uL (0-25.8)
[2020-10-15 05:51] LABS: POTASSIUM 4.1 mmol/L (3.5-5.1)
[2020-10-15 05:53] LABS: ALBUMIN 3.8 g/dl (3.4-5.0); BLOOD UREA NITROGEN 9.4 mg/dL (7-18); CALCIUM 8.9 mg/dL (8.5-10.1)
[2020-10-15 05:56] LABS: CREATININE 0.6 mg/dL (0.55-1.3)
[2020-10-15 05:58] LABS: BILIRUBIN,TOTAL 0.3 mg/dL (0.2-1)
[2020-10-15 06:44] LABS: BASO % 0.5 % (0-2.0); EOS % 1.3 % (0-4.5); HEMATOCRIT 35.5 % (32.4-45.2); HEMOGLOBIN 12.3 GM/dL (10.7-15.3); LYMPH % 18.1 % (8-40); MCH 31.2 pg (25.7-33.7); MCHC 34.6 g/dl (32.0-36.0); MEAN CELL VOLUME 90.2 fl (80-96); MEAN PLT VOLUME 10.5 fl (7.5-11.1); MONO % 7.6 % (3.8-10.2); NEUT % 72.5 % (42.8-82.8); PLATELET COUNT 169 K/MM3 (134-434); RBC 3.94 M/mm3 (3.60-5.2); RDW 12.4 % (11.6-15.6); WHITE BLOOD COUNT 8.4 K/mm3 (4.0-10.0)
[2020-10-15 08:03] LABS: ANISOCYTOSIS 0; HELMET CELLS 0; HOWELL-JOLLY BODIES 0; MACROCYTOSIS 0; OVALOCYTE 0; PLATELET ESTIMATE NORMAL; ROULEAU 0; SICKELED CELLS 0; TARGET CELLS 0; TEAR DROP CELLS 0; TOXIC GRANULATION 0
[2020-10-15 08:09] LABS: URINE RBC 17 /uL (0-23.9)
[2020-10-15 09:45] VITALS: BP 110/70; PULSE 71
== END 2020-10-15 09:45 | disposition home or self-care (01) ==
LOC: JER 02:04
DX: R31.9 Hematuria, unspecified (principal)
CPT/HCPCS: 36415; 80053; 81003; 85025; 87086; 99283-25

== ENCOUNTER 2020-10-30 09:37 | Day surgery (SDC) | payer OTHER ==
[~2020-10-30 09:37] MED LIST changes: -SODIUM CHLORIDE 1,000 ML IV SCH; +SODIUM CHLORIDE 250 ML IV ONE
[2020-10-30] MEDS ORDERED: PALONOSETRON HCL 0.25 MG/5 ML VIAL IVPUSH ONE (10:00)
[2020-10-30] MEDS ORDERED: DEXAMETHASONE SODIUM PHOSPHATE 10 MG in SODIUM CHLORIDE 50 ML IVPB ONE (10:00)
[2020-10-30] MEDS ORDERED: FOSAPREPITANT DIMEGLUMINE 150 MG in SODIUM CHLORIDE 150 ML IVPB ONE (10:00)
[2020-10-30] MEDS ORDERED: SODIUM CHLORIDE IV ONE ×2 (10:30→12:00)
[2020-10-30] MEDS ORDERED: DOCETAXEL IV ONE ×2 (10:30→12:00)
[2020-10-30 10:43] LABS: BASO % 0.1 % (0-2.0); HEMATOCRIT 34.1 % (32.4-45.2); HEMOGLOBIN 11.5 GM/dL (10.7-15.3); LYMPH % 3.8 % (8-40); MCH 30.8 pg (25.7-33.7); MCHC 33.8 g/dl (32.0-36.0); MEAN CELL VOLUME 91.2 fl (80-96); MONO % 7.4 % (3.8-10.2); NEUT % 88.7 % (42.8-82.8); PLATELET COUNT 362 K/MM3 (134-434); RBC 3.74 M/mm3 (3.60-5.2); RDW 13.4 % (11.6-15.6); WHITE BLOOD COUNT 18.8 K/mm3 (4.0-10.0)
[2020-10-30 11:04] LABS: POTASSIUM 4.1 mmol/L (3.5-5.1)
[2020-10-30 11:06] LABS: CALCIUM 9.7 mg/dL (8.5-10.1)
[2020-10-30 11:07] LABS: ALBUMIN 3.9 g/dl (3.4-5.0); BLOOD UREA NITROGEN 21.6 mg/dL (7-18); MAGNESIUM 2.2 mg/dL (1.8-2.4)
[2020-10-30 11:09] LABS: BILIRUBIN,DIRECT 0.1 mg/dL (0.0-0.2)
[2020-10-30 11:10] LABS: CREATININE 0.7 mg/dL (0.55-1.3)
[2020-10-30 11:11] LABS: BILIRUBIN,TOTAL 0.3 mg/dL (0.2-1); TOT PROT 7.8 g/dl (6.4-8.2)
[2020-10-30 11:12] LABS: BILIRUBIN,TOTAL 0.3 mg/dL (0.2-1); TOT PROT 7.7 g/dl (6.4-8.2)
[2020-10-30] MEDS ORDERED: CYCLOPHOSPHAMIDE INJECTION 1,240 MG in SODIUM CHLORIDE 250 ML IVPB ONE (11:30)
[2020-10-30] MEDS ORDERED: PANTOPRAZOLE 40 MG TABLET PO ONE (12:00)
[2020-10-30] MEDS ORDERED: LORATADINE 10 MG TABLET PO ONE (12:00)
[2020-10-30 12:35] VITALS: TEMP 98.3
[2020-10-30] MEDS ORDERED: PORTA CATH FLUSH 10 ML IVPUSH ONE (12:39)
[2020-10-30 14:19] VITALS: BP 118/69; PULSE 70
[2020-10-30 15:36] LABS: URINE APPEARANCE CLEAR; URINE BILIRUBIN NEGATIVE (NEGATIVE); URINE COLOR YELLOW; URINE GLUCOSE (UA) NEGATIVE (NEGATIVE); URINE KETONE NEGATIVE (NEGATIVE); URINE LEUK ESTERASE NEGATIVE (NEGATIVE); URINE NITRITE NEGATIVE (NEGATIVE); URINE PROTEIN NEGATIVE (NEGATIVE); URINE UROBILINOGEN 0.2 mg/dL (0.2-1.0)
== END 2020-10-30 14:31 | disposition home or self-care (01) ==
LOC: JONCCHEMO 09:37
PROVIDERS: ATTEND Internal Medicine Hematology & Oncology
DX: Z51.11 Encounter for antineoplastic chemotherapy (principal); C50.812 Malignant neoplasm of overlapping sites of left female breast; Z17.0 Estrogen receptor positive status [ER+]
CPT/HCPCS: 36415; 80053; 80076; 81003; 83735; 85025; 87086; 96361; 96367; 96375; 96413; 96417; J1453; J2469; J9070; J9171

== ENCOUNTER 2020-10-31 07:06 | Day surgery (SDC) | payer OTHER ==
[2020-10-31] MEDS ORDERED: PEGFILGRASTIM-CBQV (UDENYCA) 6 MG/0.6 ML SYRINGE SQ ONE (10:00)
[2020-10-31] MEDS ORDERED: DEXAMETHASONE SODIUM PHOSPHATE 8 MG, ONDANSETRON INJECTION 8 MG in SODIUM CHLORIDE 100 ML IVPB ONE (10:00)
[2020-10-31] MEDS ORDERED: POTASSIUM CHLORIDE 20 MEQ, MAGNESIUM SULFATE 1 GM in DEXTROSE 5%-0.45% SALINE 1,000 ML IV ONE (10:00)
[2020-10-31 13:10] LABS: BASO % 0.2 % (0-2.0); HEMATOCRIT 30.8 % (32.4-45.2); HEMOGLOBIN 10.4 GM/dL (10.7-15.3); LYMPH % 7.4 % (8-40); MCH 30.8 pg (25.7-33.7); MCHC 33.6 g/dl (32.0-36.0); MEAN CELL VOLUME 91.8 fl (80-96); MONO % 6.6 % (3.8-10.2); NEUT % 85.8 % (42.8-82.8); PLATELET COUNT 302 K/MM3 (134-434); RBC 3.36 M/mm3 (3.60-5.2); RDW 13.3 % (11.6-15.6); WHITE BLOOD COUNT 8.4 K/mm3 (4.0-10.0)
[2020-10-31 13:34] LABS: ALBUMIN 3.4 g/dl (3.4-5.0); BLOOD UREA NITROGEN 11.9 mg/dL (7-18); CALCIUM 8.8 mg/dL (8.5-10.1); MAGNESIUM 2.4 mg/dL (1.8-2.4)
[2020-10-31 13:37] LABS: BILIRUBIN,DIRECT 0.1 mg/dL (0.0-0.2); CREATININE 0.6 mg/dL (0.55-1.3)
[2020-10-31 13:39] LABS: BILIRUBIN,TOTAL 0.2 mg/dL (0.2-1); TOT PROT 6.3 g/dl (6.4-8.2)
[2020-10-31 16:40] VITALS: BP 111/51; PULSE 68; TEMP 98.7
[2020-10-31] MEDS ORDERED: PORTA CATH FLUSH 10 ML IVPUSH ONE (16:45)
== END 2020-10-31 16:00 | disposition home or self-care (01) ==
LOC: JONCCHEMO 07:06
PROVIDERS: ATTEND Internal Medicine Hematology & Oncology
PROC: 3E043GC Introduction of Other Therapeutic Substance into Central Vein, Percutaneous Approach (ICD-10-PCS; principal; 2020-10-31)
PROC: 3E013GC Introduction of Other Therapeutic Substance into Subcutaneous Tissue, Percutaneous Approach (ICD-10-PCS; 2020-10-31)
DX: C50.812 Malignant neoplasm of overlapping sites of left female breast (principal); Z17.0 Estrogen receptor positive status [ER+]; Z76.89 Persons encountering health services in other specified circumstances
CPT/HCPCS: 36415; 80048; 80076; 83735; 85025; 96365; 96366; 96372; Q5111

== ENCOUNTER 2020-11-01 07:09 | Day surgery (SDC) | payer OTHER ==
[2020-11-01] MEDS ORDERED: ONDANSETRON INJECTION 8 MG in SODIUM CHLORIDE 50 ML IVPB ONE (10:00)
[2020-11-01] MEDS ORDERED: POTASSIUM CHLORIDE 20 MEQ, MAGNESIUM SULFATE 1 GM in DEXTROSE 5%-0.45% SALINE 1,000 ML IV ONE (10:00)
[2020-11-01 15:53] VITALS: TEMP 98.4
[2020-11-01 15:55] VITALS: BP 105/55; PULSE 78
== END 2020-11-01 15:20 | disposition home or self-care (01) ==
LOC: JONCCHEMO 07:09
PROVIDERS: ATTEND Internal Medicine Hematology & Oncology
PROC: 3E043GC Introduction of Other Therapeutic Substance into Central Vein, Percutaneous Approach (ICD-10-PCS; principal; 2020-11-01)
PROC: 3E043GC Introduction of Other Therapeutic Substance into Central Vein, Percutaneous Approach (ICD-10-PCS; 2020-11-01)
DX: C50.812 Malignant neoplasm of overlapping sites of left female breast (principal); Z17.0 Estrogen receptor positive status [ER+]; Z76.89 Persons encountering health services in other specified circumstances
CPT/HCPCS: 96365; 96366; 96374

== ENCOUNTER 2020-11-20 06:16 | Day surgery (SDC) | payer OTHER ==
[2020-11-20] MEDS ORDERED: SODIUM CHLORIDE 250 ML IV ONE (09:00)
[2020-11-20] MEDS ORDERED: DEXAMETHASONE SODIUM PHOSPHATE 8 MG in SODIUM CHLORIDE 50 ML IVPB ONE (10:00)
[2020-11-20] MEDS ORDERED: FOSAPREPITANT DIMEGLUMINE 150 MG in SODIUM CHLORIDE 150 ML IVPB ONE (10:00)
[2020-11-20] MEDS ORDERED: PALONOSETRON HCL 0.25 MG/5 ML VIAL IVPUSH ONE (10:00)
[2020-11-20] MEDS ORDERED: SODIUM CHLORIDE IV ONE (10:30)
[2020-11-20] MEDS ORDERED: DOCETAXEL IV ONE (10:30)
[2020-11-20 10:42] LABS: BASO % 0.1 % (0-2.0); HEMATOCRIT 33.4 % (32.4-45.2); HEMOGLOBIN 11.5 GM/dL (10.7-15.3); LYMPH % 6.8 % (8-40); MCH 31.3 pg (25.7-33.7); MCHC 34.5 g/dl (32.0-36.0); MEAN PLT VOLUME 9.8 fl (7.5-11.1); MONO % 4.1 % (3.8-10.2); PLATELET COUNT 315 K/MM3 (134-434); RBC 3.67 M/mm3 (3.60-5.2); RDW 14.9 % (11.6-15.6); WHITE BLOOD COUNT 10.5 K/mm3 (4.0-10.0)
[2020-11-20 11:00] LABS: POTASSIUM 4.1 mmol/L (3.5-5.1)
[2020-11-20 11:01] LABS: CALCIUM 9.6 mg/dL (8.5-10.1)
[2020-11-20 11:02] LABS: BLOOD UREA NITROGEN 15.8 mg/dL (7-18)
[2020-11-20 11:03] LABS: MAGNESIUM 2.1 mg/dL (1.8-2.4)
[2020-11-20 11:05] LABS: BILIRUBIN,DIRECT 0.1 mg/dL (0.0-0.2); CREATININE 0.7 mg/dL (0.55-1.3)
[2020-11-20 11:08] LABS: BILIRUBIN,TOTAL 0.9 mg/dL (0.2-1); TOT PROT 7.7 g/dl (6.4-8.2)
[2020-11-20] MEDS ORDERED: CYCLOPHOSPHAMIDE INJECTION 1,240 MG in SODIUM CHLORIDE 250 ML IVPB ONE (11:30)
[2020-11-20 15:04] VITALS: TEMP 98.8
[2020-11-20 15:47] VITALS: BP 126/81; PULSE 76
[2020-11-20] MEDS ORDERED: PORTA CATH FLUSH 10 ML IVPUSH ONE (15:47)
== END 2020-11-20 14:30 | disposition home or self-care (01) ==
LOC: JONCCHEMO 06:16
PROVIDERS: ATTEND Internal Medicine Hematology & Oncology
DX: Z51.11 Encounter for antineoplastic chemotherapy (principal); C50.812 Malignant neoplasm of overlapping sites of left female breast; Z17.0 Estrogen receptor positive status [ER+]
CPT/HCPCS: 36415; 80048; 80076; 83735; 85025; 96361; 96367; 96375; 96413; 96417; J1453; J2469; J9070; J9171

== ENCOUNTER 2020-11-21 07:14 | Day surgery (SDC) | payer OTHER ==
[2020-11-21] MEDS ORDERED: PEGFILGRASTIM-CBQV (UDENYCA) 6 MG/0.6 ML SYRINGE SQ ONE (10:00)
[2020-11-21] MEDS ORDERED: DEXAMETHASONE SODIUM PHOSPHATE 8 MG, ONDANSETRON INJECTION 8 MG in SODIUM CHLORIDE 100 ML IVPB ONE (10:00)
[2020-11-21] MEDS ORDERED: POTASSIUM CHLORIDE 20 MEQ, MAGNESIUM SULFATE 1 GM in DEXTROSE 5%-0.45% SALINE 1,000 ML IVPB ONE (10:00)
[2020-11-21 17:20] VITALS: TEMP 98.3
[2020-11-21 17:33] VITALS: BP 142/74; PULSE 78
[2020-11-21] MEDS ORDERED: PORTA CATH FLUSH 10 ML IVPUSH ONE (17:33)
== END 2020-11-21 16:10 | disposition home or self-care (01) ==
LOC: JONCCHEMO 07:14
PROVIDERS: ATTEND Internal Medicine Hematology & Oncology
PROC: 3E043GC Introduction of Other Therapeutic Substance into Central Vein, Percutaneous Approach (ICD-10-PCS; principal; 2020-11-21)
PROC: 3E043GC Introduction of Other Therapeutic Substance into Central Vein, Percutaneous Approach (ICD-10-PCS; 2020-11-21)
PROC: 3E013GC Introduction of Other Therapeutic Substance into Subcutaneous Tissue, Percutaneous Approach (ICD-10-PCS; 2020-11-21)
DX: C50.812 Malignant neoplasm of overlapping sites of left female breast (principal); Z17.0 Estrogen receptor positive status [ER+]; Z76.89 Persons encountering health services in other specified circumstances
CPT/HCPCS: 96361; 96365; 96372; Q5111

== ENCOUNTER 2020-11-22 06:38 | Day surgery (SDC) | payer OTHER ==
[2020-11-22] MEDS ORDERED: POTASSIUM CHLORIDE 20 MEQ, MAGNESIUM SULFATE 1 GM in DEXTROSE 5%-0.45% SALINE 1,000 ML IVPB ONE (10:00)
[2020-11-22] MEDS ORDERED: ONDANSETRON INJECTION 8 MG in SODIUM CHLORIDE 50 ML IVPB ONE (10:00)
[2020-11-22 18:13] VITALS: TEMP 98.9
[2020-11-22 18:18] VITALS: BP 102/60; PULSE 72
[2020-11-22] MEDS ORDERED: PORTA CATH FLUSH 10 ML IVPUSH ONE (18:18)
== END 2020-11-22 15:45 | disposition home or self-care (01) ==
LOC: JONCNONCHE 06:38
PROVIDERS: ATTEND Internal Medicine Hematology & Oncology
PROC: 3E0437Z Introduction of Electrolytic and Water Balance Substance into Central Vein, Percutaneous Approach (ICD-10-PCS; principal; 2020-11-22)
PROC: 3E043GC Introduction of Other Therapeutic Substance into Central Vein, Percutaneous Approach (ICD-10-PCS; 2020-11-22)
DX: C50.812 Malignant neoplasm of overlapping sites of left female breast (principal); Z17.0 Estrogen receptor positive status [ER+]
CPT/HCPCS: 96361; 96365

== ENCOUNTER 2020-12-18 06:29 | Day surgery (SDC) | payer OTHER ==
[2020-12-18] MEDS ORDERED: SODIUM CHLORIDE 250 ML IV ONE (09:00)
[2020-12-18] MEDS ORDERED: DEXAMETHASONE SODIUM PHOSPHATE 10 MG in SODIUM CHLORIDE 50 ML IVPB ONE (09:30)
[2020-12-18] MEDS ORDERED: PALONOSETRON HCL 0.25 MG/5 ML VIAL IVPUSH ONE (09:30)
[2020-12-18] MEDS ORDERED: FOSAPREPITANT DIMEGLUMINE 150 MG in SODIUM CHLORIDE 145 ML IVPB ONE (09:30)
[2020-12-18] MEDS ORDERED: SODIUM CHLORIDE IV ONE (10:00)
[2020-12-18] MEDS ORDERED: DOCETAXEL IV ONE (10:00)
[2020-12-18] MEDS ORDERED: CYCLOPHOSPHAMIDE INJECTION 1,220 MG in SODIUM CHLORIDE 250 ML IVPB ONE (11:00)
[2020-12-18 13:04] LABS: BASO % 0.1 % (0-2.0); EOS % 0.1 % (0-4.5); HEMATOCRIT 34.5 % (32.4-45.2); HEMOGLOBIN 11.4 GM/dL (10.7-15.3); LYMPH % 6.3 % (8-40); MCH 30.7 pg (25.7-33.7); MCHC 33.1 g/dl (32.0-36.0); MEAN CELL VOLUME 92.8 fl (80-96); MEAN PLT VOLUME 9.4 fl (7.5-11.1); MONO % 6.6 % (3.8-10.2); NEUT % 86.9 % (42.8-82.8); PLATELET COUNT 330 K/MM3 (134-434); RBC 3.72 M/mm3 (3.60-5.2); RDW 16.6 % (11.6-15.6); WHITE BLOOD COUNT 11.9 K/mm3 (4.0-10.0)
[2020-12-18 13:28] LABS: CALCIUM 9.6 mg/dL (8.5-10.1)
[2020-12-18 13:29] LABS: ALBUMIN 4.2 g/dl (3.4-5.0); BLOOD UREA NITROGEN 19.6 mg/dL (7-18); MAGNESIUM 2.4 mg/dL (1.8-2.4)
[2020-12-18 13:31] LABS: BILIRUBIN,DIRECT 0.1 mg/dL (0.0-0.2)
[2020-12-18 13:32] LABS: CREATININE 0.6 mg/dL (0.55-1.3)
[2020-12-18 13:33] LABS: BILIRUBIN,TOTAL 0.3 mg/dL (0.2-1)
[2020-12-18 13:34] LABS: TOT PROT 7.6 g/dl (6.4-8.2)
[2020-12-18 16:01] VITALS: TEMP 98.8
[2020-12-18] MEDS ORDERED: PORTA CATH FLUSH 10 ML IVPUSH ONE (16:30)
[2020-12-18 17:34] VITALS: BP 125/63; PULSE 76
== END 2020-12-18 17:00 | disposition home or self-care (01) ==
LOC: JONCCHEMO 06:29
PROVIDERS: ATTEND Internal Medicine Hematology & Oncology
DX: Z51.11 Encounter for antineoplastic chemotherapy (principal); C50.812 Malignant neoplasm of overlapping sites of left female breast; Z17.0 Estrogen receptor positive status [ER+]
CPT/HCPCS: 36415; 80048; 80076; 83735; 85025; 96361; 96367; 96375; 96413; 96417; J1453; J2469; J9070; J9171

== ENCOUNTER 2020-12-19 06:45 | Day surgery (SDC) | payer OTHER ==
[2020-12-19] MEDS ORDERED: D5-1/2NS+20 MEQ KCL - 20 MEQ/1,000 ML INFUS.BAG IV ONE (09:00)
[2020-12-19] MEDS ORDERED: PEGFILGRASTIM-CBQV (UDENYCA) 6 MG/0.6 ML SYRINGE SQ ONE (10:00)
[2020-12-19] MEDS ORDERED: MAGNESIUM 1GM/D5W - 1 GM/100 ML IVPB IVPB ONE (10:00)
[2020-12-19] MEDS ORDERED: MAGNESIUM SULFATE IN WATER 2 GM/50 ML IVPB IVPB ONE (10:00)
[2020-12-19] MEDS ORDERED: DEXAMETHASONE SODIUM PHOSPHATE 8 MG, ONDANSETRON INJECTION 8 MG in SODIUM CHLORIDE 100 ML IVPB ONE (10:00)
[2020-12-19] MEDS ORDERED: PORTA CATH FLUSH 10 ML IVPUSH ONE (17:16)
[2020-12-19 17:41] VITALS: TEMP 98
[2020-12-19 17:42] VITALS: BP 110/59; PULSE 61
== END 2020-12-19 18:00 | disposition home or self-care (01) ==
LOC: JONCCHEMO 06:45
PROVIDERS: ATTEND Internal Medicine Hematology & Oncology
PROC: 3E043GC Introduction of Other Therapeutic Substance into Central Vein, Percutaneous Approach (ICD-10-PCS; principal; 2020-12-19)
PROC: 3E043GC Introduction of Other Therapeutic Substance into Central Vein, Percutaneous Approach (ICD-10-PCS; 2020-12-19)
DX: C50.812 Malignant neoplasm of overlapping sites of left female breast (principal); Z17.0 Estrogen receptor positive status [ER+]; Z76.89 Persons encountering health services in other specified circumstances
CPT/HCPCS: 96361; 96365; 96372; Q5111

== ENCOUNTER 2021-03-05 13:50 | Inpatient (IN) | payer OTHER ==
[2021-03-05 16:31] LABS: BASO % 0.9 % (0-2.0); EOS % 1.2 % (0-4.5); HEMATOCRIT 39.7 % (32.4-45.2); HEMOGLOBIN 13.4 GM/dL (10.7-15.3); MCH 31.1 pg (25.7-33.7); MCHC 33.7 g/dl (32.0-36.0); MEAN CELL VOLUME 92.3 fl (80-96); MEAN PLT VOLUME 8.6 fl (7.5-11.1); MONO % 8.8 % (3.8-10.2); NEUT % 71.1 % (42.8-82.8); PLATELET COUNT 244 10^3/uL (134-434); RDW 13.8 % (11.6-15.6); WHITE BLOOD COUNT 6.2 K/mm3 (4.0-10.0)
[2021-03-05 16:51] LABS: CALCIUM 9.8 mg/dL (8.5-10.1)
[2021-03-05 16:52] LABS: ALBUMIN 4.4 g/dl (3.4-5.0); BLOOD UREA NITROGEN 12.1 mg/dL (7-18)
[2021-03-05 16:54] LABS: CREATININE 0.7 mg/dL (0.55-1.3)
[2021-03-05 16:56] LABS: BILIRUBIN,TOTAL 0.3 mg/dL (0.2-1); TOT PROT 7.9 g/dl (6.4-8.2)
[2021-03-05 18:08] LABS: EPI CELLS 10 /uL (0-25.1); HYALINE CASTS 1 /uL (0-3.1); PH,URINE 5.5 (5.0-8.0); URINE APPEARANCE CLEAR; URINE BACTERIA 278 /uL (0-1359); URINE BILIRUBIN NEGATIVE (NEGATIVE); URINE COLOR YELLOW; URINE GLUCOSE (UA) NEGATIVE (NEGATIVE); URINE KETONE TRACE (NEGATIVE); URINE LEUK ESTERASE 2+ (NEGATIVE); URINE NITRITE NEGATIVE (NEGATIVE); URINE PROTEIN NEGATIVE (NEGATIVE); URINE RBC 15 /uL (0-23.9); URINE UROBILINOGEN 0.2 mg/dL (0.2-1.0); URINE WBC 72 /uL (0-25.8)
[2021-03-05] MEDS ORDERED: ALBUTEROL SO4 0.083% IH SOL 2.5 MG/3 ML VIAL.NEB. NEB PRN (18:10)
[2021-03-05] MEDS ORDERED: FLUCONAZOLE 400 MG/NS 200 ML IVPB SCH (18:30)
[2021-03-05] MEDS: SODIUM CHLORIDE 1,000 ML IV SCH (18:35)
[2021-03-05] MEDS ORDERED: ACETAMINOPHEN 1000 MG/100 ML VIAL (NON FORMULARY) IVPB PRN (18:44)
[2021-03-05] MEDS ORDERED: BENZOCAINE/MENTH/CETYLPYRD CL 1 EACH LOZENGE MM PRN (19:27)
[2021-03-05 23:06] LABS: HIV INTERPRETATION NEGATIVE (NEGATIVE)
[2021-03-05] MEDS: NYSTATIN 500,000 UNITS/5 ML SUSPENSION PO SCH (23:20)
[2021-03-06] MEDS: NYSTATIN 500,000 UNITS/5 ML SUSPENSION PO SCH ×4 (05:51→23:23)
[2021-03-06 07:30] LABS: HEMATOCRIT 34.7 % (32.4-45.2); HEMOGLOBIN 11.7 GM/dL (10.7-15.3); MCH 31.1 pg (25.7-33.7); MCHC 33.6 g/dl (32.0-36.0); MEAN CELL VOLUME 92.4 fl (80-96); MEAN PLT VOLUME 8.7 fl (7.5-11.1); PLATELET COUNT 180 10^3/uL (134-434); RBC 3.76 M/mm3 (3.60-5.2); RDW 13.8 % (11.6-15.6); WHITE BLOOD COUNT 3.3 K/mm3 (4.0-10.0)
[2021-03-06 07:51] LABS: CALCIUM 8.7 mg/dL (8.5-10.1)
[2021-03-06 07:53] LABS: ALBUMIN 3.6 g/dl (3.4-5.0); BLOOD UREA NITROGEN 9.1 mg/dL (7-18); MAGNESIUM 2.3 mg/dL (1.8-2.4)
[2021-03-06 07:55] LABS: CREATININE 0.7 mg/dL (0.55-1.3); PHOSPHOROUS 4.2 mg/dL (2.5-4.9)
[2021-03-06 07:57] LABS: BILIRUBIN,TOTAL 0.3 mg/dL (0.2-1); TOT PROT 6.3 g/dl (6.4-8.2)
[2021-03-06] MEDS: SODIUM CHLORIDE 1,000 ML IV SCH ×2 (08:51→19:40)
[2021-03-06] MEDS ORDERED: PT OWN MED DRAWER 7, Y5N ONE ×4 (09:17→20:39)
[2021-03-06] MEDS: ENOXAPARIN NA (PORCINE) 40 MG/0.4 ML DISP.SYRIN SQ SCH (09:20)
[2021-03-06] MEDS: FLUCONAZOLE IVPB SCH ×2 (11:19→12:41)
[2021-03-06] MEDS: NS IVPB SCH ×2 (11:19→12:41)
[2021-03-06 16:21] VITALS: BMI 27.0
[2021-03-06] MEDS: NORTRIPTYLINE HCL 10 MG CAPSULE PO SCH (21:20)
[2021-03-06] MEDS: MELATONIN 5 MG TABLETS PO PRN (23:26)
[2021-03-07] MEDS: SODIUM CHLORIDE 1,000 ML IV SCH ×2 (06:07→18:44)
[2021-03-07] MEDS: NYSTATIN 500,000 UNITS/5 ML SUSPENSION PO SCH ×3 (06:07→18:45)
[2021-03-07 09:07] LABS: BASO % 0.8 % (0-2.0); EOS % 2.5 % (0-4.5); HEMOGLOBIN 11.6 GM/dL (10.7-15.3); LYMPH % 19.8 % (8-40); MCH 30.8 pg (25.7-33.7); MCHC 33.2 g/dl (32.0-36.0); MEAN CELL VOLUME 92.7 fl (80-96); MONO % 12.9 % (3.8-10.2); PLATELET COUNT 175 10^3/uL (134-434); RBC 3.78 M/mm3 (3.60-5.2); WHITE BLOOD COUNT 3.1 K/mm3 (4.0-10.0)
[2021-03-07 09:26] LABS: BLOOD UREA NITROGEN 7.1 mg/dL (7-18)
[2021-03-07 09:27] LABS: CALCIUM 8.9 mg/dL (8.5-10.1); MAGNESIUM 2.4 mg/dL (1.8-2.4)
[2021-03-07 09:29] LABS: ALBUMIN 3.4 g/dl (3.4-5.0)
[2021-03-07 09:32] LABS: BILIRUBIN,TOTAL 0.2 mg/dL (0.2-1); CREATININE 0.7 mg/dL (0.55-1.3); TOT PROT 6.3 g/dl (6.4-8.2)
[2021-03-07] MEDS ORDERED: PT OWN MED DRAWER 7, Y5N ONE (10:09)
[2021-03-07] MEDS: ENOXAPARIN NA (PORCINE) 40 MG/0.4 ML DISP.SYRIN SQ SCH (10:29)
[2021-03-07] MEDS: CHOLECALCIFEROL (VIT D3) 5000 UNITS (125 MCG) CAP PO SCH (10:29)
[2021-03-07] MEDS: FLUCONAZOLE 400 MG/NS 200 ML IVPB SCH (12:21)
[2021-03-07] MEDS: NORTRIPTYLINE HCL 10 MG CAPSULE PO SCH (22:17)
[2021-03-08] MEDS: MELATONIN 5 MG TABLETS PO PRN ×2 (00:02→23:07)
[2021-03-08] MEDS: NYSTATIN 500,000 UNITS/5 ML SUSPENSION PO SCH ×5 (00:02→23:07)
[2021-03-08] MEDS: SODIUM CHLORIDE 1,000 ML IV SCH ×2 (04:13→18:25)
[2021-03-08] MEDS ORDERED: PT OWN MED DRAWER 7, Y5N ONE (09:18)
[2021-03-08] MEDS: FLUCONAZOLE 400 MG/NS 200 ML IVPB SCH (09:26)
[2021-03-08] MEDS: CHOLECALCIFEROL (VIT D3) 5000 UNITS (125 MCG) CAP PO SCH (09:26)
[2021-03-08] MEDS: ENOXAPARIN NA (PORCINE) 40 MG/0.4 ML DISP.SYRIN SQ SCH (09:27)
[2021-03-08 09:57] LABS: BASO % 1.1 % (0-2.0); EOS % 1.9 % (0-4.5); HEMATOCRIT 34.8 % (32.4-45.2); HEMOGLOBIN 11.8 GM/dL (10.7-15.3); LYMPH % 18.9 % (8-40); MCH 31.1 pg (25.7-33.7); MCHC 33.8 g/dl (32.0-36.0); MEAN CELL VOLUME 91.9 fl (80-96); MEAN PLT VOLUME 8.9 fl (7.5-11.1); MONO % 10.9 % (3.8-10.2); NEUT % 67.2 % (42.8-82.8); PLATELET COUNT 181 10^3/uL (134-434); RBC 3.79 M/mm3 (3.60-5.2); WHITE BLOOD COUNT 3.1 K/mm3 (4.0-10.0)
[2021-03-08 10:23] LABS: BLOOD UREA NITROGEN 7.7 mg/dL (7-18); CALCIUM 8.8 mg/dL (8.5-10.1)
[2021-03-08 10:24] LABS: ALBUMIN 3.4 g/dl (3.4-5.0); MAGNESIUM 2.2 mg/dL (1.8-2.4)
[2021-03-08 10:27] LABS: CREATININE 0.6 mg/dL (0.55-1.3); PHOSPHOROUS 3.9 mg/dL (2.5-4.9)
[2021-03-08 10:28] LABS: BILIRUBIN,TOTAL 0.2 mg/dL (0.2-1); TOT PROT 6.3 g/dl (6.4-8.2)
[2021-03-08] MEDS: NORTRIPTYLINE HCL 10 MG CAPSULE PO SCH (21:38)
[2021-03-09] MEDS: NYSTATIN 500,000 UNITS/5 ML SUSPENSION PO SCH ×4 (05:59→23:11)
[2021-03-09] MEDS: SODIUM CHLORIDE 1,000 ML IV SCH ×3 (06:01→20:25)
[2021-03-09 09:35] LABS: BASO % 0.6 % (0-2.0); EOS % 1.6 % (0-4.5); HEMATOCRIT 36.2 % (32.4-45.2); HEMOGLOBIN 12.1 GM/dL (10.7-15.3); LYMPH % 15.3 % (8-40); MCH 31.2 pg (25.7-33.7); MCHC 33.5 g/dl (32.0-36.0); MEAN CELL VOLUME 93.1 fl (80-96); MEAN PLT VOLUME 9.2 fl (7.5-11.1); MONO % 7.5 % (3.8-10.2); PLATELET COUNT 189 10^3/uL (134-434); RBC 3.88 M/mm3 (3.60-5.2); RDW 13.9 % (11.6-15.6); WHITE BLOOD COUNT 3.8 K/mm3 (4.0-10.0)
[2021-03-09] MEDS: FLUCONAZOLE 400 MG/NS 200 ML IVPB SCH (09:37)
[2021-03-09] MEDS: CHOLECALCIFEROL (VIT D3) 5000 UNITS (125 MCG) CAP PO SCH (09:38)
[2021-03-09] MEDS: ENOXAPARIN NA (PORCINE) 40 MG/0.4 ML DISP.SYRIN SQ SCH (09:38)
[2021-03-09 10:03] LABS: CALCIUM 9.1 mg/dL (8.5-10.1)
[2021-03-09 10:04] LABS: ALBUMIN 3.5 g/dl (3.4-5.0); BLOOD UREA NITROGEN 8.6 mg/dL (7-18)
[2021-03-09 10:05] LABS: MAGNESIUM 2.3 mg/dL (1.8-2.4)
[2021-03-09 10:07] LABS: CREATININE 0.7 mg/dL (0.55-1.3); PHOSPHOROUS 3.9 mg/dL (2.5-4.9)
[2021-03-09 10:08] LABS: BILIRUBIN,TOTAL 0.3 mg/dL (0.2-1); TOT PROT 6.4 g/dl (6.4-8.2)
[2021-03-09] MEDS: NORTRIPTYLINE HCL 10 MG CAPSULE PO SCH (21:09)
[2021-03-09] MEDS: MELATONIN 5 MG TABLETS PO PRN (23:13)
[2021-03-10] MEDS: NYSTATIN 500,000 UNITS/5 ML SUSPENSION PO SCH ×4 (05:44→23:05)
[2021-03-10] MEDS: SODIUM CHLORIDE 1,000 ML IV SCH ×2 (08:32→21:56)
[2021-03-10] MEDS ORDERED: PT OWN MED DRAWER 7, Y5N ONE ×2 (09:04→21:35)
[2021-03-10] MEDS: ENOXAPARIN NA (PORCINE) 40 MG/0.4 ML DISP.SYRIN SQ SCH (09:06)
[2021-03-10] MEDS: FLUCONAZOLE 400 MG/NS 200 ML IVPB SCH (09:06)
[2021-03-10] MEDS: CHOLECALCIFEROL (VIT D3) 5000 UNITS (125 MCG) CAP PO SCH (09:06)
[2021-03-10] MEDS: NORTRIPTYLINE HCL 10 MG CAPSULE PO SCH ×2 (21:56→22:00)
[2021-03-10] MEDS: MELATONIN 5 MG TABLETS PO PRN (23:11)
[2021-03-11] MEDS: NYSTATIN 500,000 UNITS/5 ML SUSPENSION PO SCH ×4 (05:19→22:59)
[2021-03-11] MEDS ORDERED: PT OWN MED DRAWER 7, Y5N ONE ×2 (09:39→09:55)
[2021-03-11] MEDS: SODIUM CHLORIDE 1,000 ML IV SCH (09:43)
[2021-03-11] MEDS: FLUCONAZOLE 400 MG/NS 200 ML IVPB SCH (09:44)
[2021-03-11] MEDS: ENOXAPARIN NA (PORCINE) 40 MG/0.4 ML DISP.SYRIN SQ SCH (09:44)
[2021-03-11] MEDS: CHOLECALCIFEROL (VIT D3) 5000 UNITS (125 MCG) CAP PO SCH (09:44)
[2021-03-11] MEDS: BACITRACIN 15 GM TUBE TOPICAL OINTMENT TP SCH (15:38)
[2021-03-11] MEDS ORDERED: CEFTRIAXONE 1 GM in DEXTROSE 5%-WATER - 50 ML IVPB ONE ×2 (18:46→19:15)
[2021-03-11] MEDS ORDERED: cefTRIAXone SODIUM 1 GM VIAL ONE (19:50)
[2021-03-11] MEDS ORDERED: DEXTROSE 5%-WATER - 50 ML IVPB ONE (19:50)
[2021-03-11] MEDS: NORTRIPTYLINE HCL 10 MG CAPSULE PO SCH (21:45)
[2021-03-11] MEDS: MELATONIN 5 MG TABLETS PO PRN (22:57)
[2021-03-12] MEDS: NYSTATIN 500,000 UNITS/5 ML SUSPENSION PO SCH ×2 (05:08→11:44)
[2021-03-12] MEDS ORDERED: PT OWN MED DRAWER 7, Y5N ONE (09:57)
[2021-03-12] MEDS: FLUCONAZOLE 400 MG/NS 200 ML IVPB SCH (10:04)
[2021-03-12] MEDS: BACITRACIN 15 GM TUBE TOPICAL OINTMENT TP SCH (10:05)
[2021-03-12] MEDS: ENOXAPARIN NA (PORCINE) 40 MG/0.4 ML DISP.SYRIN SQ SCH (10:05)
[2021-03-12] MEDS: CHOLECALCIFEROL (VIT D3) 5000 UNITS (125 MCG) CAP PO SCH (10:05)
[2021-03-12] MEDS ORDERED: DEXTROSE 5%-WATER - 50 ML IVPB ONE (12:29)
[2021-03-12] MEDS ORDERED: cefTRIAXone SODIUM 1 GM VIAL ONE (12:29)
[2021-03-12] MEDS ORDERED: CEFTRIAXONE 1 GM in DEXTROSE 5%-WATER - 50 ML IVPB ONE (12:30)
[2021-03-12 14:50] VITALS: BP 106/64; PULSE 94; TEMP 98
== END 2021-03-12 17:00 | disposition home or self-care (01) | DRG 242 ==
LOC: JERFT 13:50 → JER 13:50 → JERBED 15:54 → J8W 19:59
PROVIDERS: ATTEND Student in an Organized Health Care Education/Training Program
DX: B37.81 Candidal esophagitis (principal); K21.9 Gastro-esophageal reflux disease without esophagitis; B37.0 Candidal stomatitis; G62.9 Polyneuropathy, unspecified; R13.12 Dysphagia, oropharyngeal phase; C50.919 Malignant neoplasm of unspecified site of unspecified female breast; K20.90 Esophagitis, unspecified without bleeding; D70.1 Agranulocytosis secondary to cancer chemotherapy; T45.1X5A Adverse effect of antineoplastic and immunosuppressive drugs, initial encounter
CPT/HCPCS: 36415; 71046-TC-FY; 74220-TC-FY; 80053; 81003; 83735; 84100; 84443; 85025; 85027; 87040; 87086; 87102; 87210; 87389; 93005; 93010; 99285-25; C9803; J0131; U0003; U0005

== ENCOUNTER 2021-03-24 14:20 | Emergency (ER) | payer OTHER ==
[2021-03-24 14:45] VITALS: BP 115/69; PULSE 75; TEMP 98.5; BMI 26.6
[2021-03-24] MEDS ORDERED: SODIUM CHLORIDE 1,000 ML IV STA (14:58)
[2021-03-24] MEDS ORDERED: morphine CARPU-JECT 4 MG/1 ML DISP.SYRIN IVPUSH ONE ×2 (14:58→16:34)
[2021-03-24] MEDS ORDERED: morphine SULFATE 4 MG/ML VIAL ONE (15:17)
[2021-03-24] MEDS ORDERED: KETOROLAC TROMETHAMINE 30 MG/1 ML VIAL IVPUSH ONE (15:19)
[2021-03-24] MEDS ORDERED: KETOROLAC TROMETHAMINE 30 MG/1 ML VIAL ONE (15:20)
[2021-03-24 16:21] LABS: ALBUMIN 4.3 g/dl (3.4-5.0); BILIRUBIN,TOTAL 0.3 mg/dl (0.2-1); CALCIUM 9.6 mg/dl (8.5-10); CREATININE 0.7 mg/dl (0.55-1.3); TOT PROT 7.5 g/dl (6.4-8.2)
[2021-03-24 16:22] LABS: HCG,QUALITATIVE URINE Negative
[2021-03-24 16:24] LABS: BASO % 0.3 % (0-2.0); EOS % 0.2 % (0-4.5); HEMATOCRIT 37.3 % (32.4-45.2); HEMOGLOBIN 12.9 GM/dl (10.7-15.3); LYMPH % 10.1 % (8-40); MCH 31.7 pg (25.7-33.7); MCHC 34.6 g/dl (32.0-36.0); MEAN CELL VOLUME 91.4 fl (80-96); MONO % 8.6 % (3.8-10.2); NEUT % 80.8 % (42.8-82.8); PLATELET COUNT 234 10^3/uL (134-434); RBC 4.08 M/mm3 (3.60-5.2); RDW 12.9 % (11.6-15.6); WHITE BLOOD COUNT 7.5 K/mm3 (4.0-10.8)
[2021-03-24] MEDS ORDERED: oxyCODONE HCL 5 MG TABLET PO ONE (16:36)
[2021-03-24] MEDS ORDERED: oxyCODONE HCL 5 MG TABLET ONE (16:36)
== END 2021-03-24 18:17 | disposition home or self-care (01) ==
LOC: FER 14:20
PROC: 3E033GC Introduction of Other Therapeutic Substance into Peripheral Vein, Percutaneous Approach (ICD-10-PCS; principal; 2021-03-24)
DX: R10.32 Left lower quadrant pain (principal)
CPT/HCPCS: 36415; 74177-TC; 80053; 81003; 83605; 84703; 85025; 87086; 99285-25; Q9967

== ENCOUNTER 2021-05-01 04:18 | Day surgery (SDC) | payer OTHER ==
[2021-04-26 11:39] VITALS: BMI 26.6
[2021-05-01] MEDS ORDERED: BUPIVACAINE HCL/PF 0.5% (5MG/ML) 10 ML VIAL ONE (10:19)
[2021-05-01] MEDS ORDERED: LIDOCAINE HCL 1%, 10 MG/ML (20ML VIAL) ONE (10:19)
[2021-05-01] MEDS ORDERED: LIDOCAINE HCL 1%, 10 MG/ML (50 mL VIAL) INF ONE (10:46)
[2021-05-01 11:56] VITALS: BP 121/73; PULSE 79; TEMP 98.1
== END 2021-05-01 12:20 | disposition home or self-care (01) ==
LOC: JASU-SURG 04:18
PROVIDERS: ATTEND Surgery
PROC: 0JPT0WZ Removal of Totally Implantable Vascular Access Device from Trunk Subcutaneous Tissue and Fascia, Open Approach (ICD-10-PCS; principal; 2021-05-01 10:00)
DX: C50.912 Malignant neoplasm of unspecified site of left female breast (principal)
CPT/HCPCS: 88300-TC

== ENCOUNTER 2021-12-06 04:31 | Day surgery (SDC) | payer OTHER ==
[2021-12-04 11:53] VITALS: BMI 30.1
[2021-12-06 11:00] VITALS: TEMP 99.1
[2021-12-06 11:33] VITALS: BP 127/72; PULSE 84
== END 2021-12-06 13:44 | disposition home or self-care (01) ==
LOC: JASU-ENDO 04:31
PROVIDERS: ATTEND Internal Medicine Gastroenterology
PROC: 0DBL8ZX Excision of Transverse Colon, Via Natural or Artificial Opening Endoscopic, Diagnostic (ICD-10-PCS; 2021-12-06)
PROC: 0DBN8ZX Excision of Sigmoid Colon, Via Natural or Artificial Opening Endoscopic, Diagnostic (ICD-10-PCS; 2021-12-06)
PROC: 0DBP8ZX Excision of Rectum, Via Natural or Artificial Opening Endoscopic, Diagnostic (ICD-10-PCS; 2021-12-06)
PROC: 0DBH8ZX Excision of Cecum, Via Natural or Artificial Opening Endoscopic, Diagnostic (ICD-10-PCS; principal; 2021-12-06 10:00)
DX: Z12.11 Encounter for screening for malignant neoplasm of colon (principal); D12.3 Benign neoplasm of transverse colon; D12.0 Benign neoplasm of cecum; K63.3 Ulcer of intestine; K63.89 Other specified diseases of intestine
CPT/HCPCS: 81025; 88305-TC

== ENCOUNTER 2022-01-15 04:18 | Day surgery (SDC) | payer OTHER ==
[2022-01-10 14:50] VITALS: BMI 30.4
[2022-01-15 10:40] VITALS: TEMP 98
[2022-01-15 11:10] VITALS: BP 123/72; PULSE 89
[2022-01-15 12:03] LABS: ALBUMIN 3.9 g/dl (3.4-5.0)
[2022-01-15 12:06] LABS: BILIRUBIN,DIRECT 0.1 mg/dL (0.0-0.2)
[2022-01-15 12:07] LABS: TOT PROT 7.4 g/dl (6.4-8.2)
[2022-01-15 12:08] LABS: BILIRUBIN,TOTAL 0.3 mg/dL (0.2-1)
== END 2022-01-15 11:47 | disposition home or self-care (01) ==
LOC: JASU-ENDO 04:18
PROVIDERS: ATTEND Internal Medicine Gastroenterology
PROC: 0DB68ZX Excision of Stomach, Via Natural or Artificial Opening Endoscopic, Diagnostic (ICD-10-PCS; 2022-01-15)
PROC: 0DB98ZX Excision of Duodenum, Via Natural or Artificial Opening Endoscopic, Diagnostic (ICD-10-PCS; principal; 2022-01-15 10:15)
DX: K29.80 Duodenitis without bleeding (principal); K29.50 Unspecified chronic gastritis without bleeding; K31.89 Other diseases of stomach and duodenum; K31.7 Polyp of stomach and duodenum
CPT/HCPCS: 36415; 80076; 82103; 82390; 82977; 83516; 83540; 83550; 84080; 86038; 86704; 86708; 86803; 87340; 87517; 88305-TC; 88342-TC